=== PATIENT | male | born 1980 | race Caucasian/White ===

== ENCOUNTER 2019-11-17 19:08 | Inpatient (IN) ==
[2019-11-17 20:34] LABS: Basophils # 0.1 K/mcL (0.0-0.2); Basophils % 0.6 %; Eosinophils # 0.2 K/mcL (0.0-0.6); Hematocrit 42.7 % (37.5-50.1); Hemoglobin 14.3 g/dL (12.9-16.9); Immature Granulocytes % 0.5 % (0-4); Lymphocytes # 3.9 K/mcL (0.6-4.6); Lymphocytes % 48.1 %; Mean Corpuscular HGB Conc 33.5 g/dL (31.6-35.5); Mean Corpuscular Hemoglobin 28.9 pg (28.0-33.3); Mean Corpuscular Volume 86.4 fL (83.0-100.0); Mean Platelet Volume 12.1 fL (9.4-12.4); Monocytes # 0.9 K/mcL (0.0-1.3); Monocytes % 10.5 %; Neutrophils # 3.1 K/mcL (1.6-8.9); Platelet Count 215 K/mcL (140-400); Red Blood Count 4.94 M/mcL (4.19-5.50); Red Cell Distribution Width 13.1 % (11.5-14.5); Segmented Neutrophils % 38.3 %; White Blood Count 8.2 K/mcL (4.3-11.1)
[2019-11-17 20:50] LABS: Amphetamine Screen,Urine Negative ng/mL (Cutoff=1000); Barbiturate Screen,Urine Negative ng/mL (Cutoff=200); Benzodiazepines Screen,Urine Negative ng/mL (Cutoff=200); Cannabinoid Screen,Urine Positive ng/mL (Cutoff = 50); Cocaine Screen,Urine Negative ng/mL (Cutoff= 300); Opiate Screen,Urine Positive ng/mL (Cutoff=300); Phencyclidine Screen,Urine Negative ng/mL (Cutoff=25)
[2019-11-17 20:54] LABS: Acetaminophen < 10 mcg/mL (10-20); BUN/Creatinine Ratio 28 (6-26); Blood Urea Nitrogen 22 mg/dL (6-20); Calcium 9.4 mg/dL (8.6-10.3); Carbon Dioxide 24 mEq/L (23-29); Chloride 105 mEq/L (98-107); Chol/HDL Ratio 5.8 (0-4.9); Cholesterol 266 mg/dL (< 200); Ethanol 52 mg/dL (Less than 10); Glucose 93 mg/dL (70-105); HDL Cholesterol 46 mg/dL (40-59); LDL Cholesterol,Calculated 159 mg/dL (< 100); Osmolality,Calculated 291 (280-300); Salicylate < 2.5 mg/dL (15.0-30.0); Sodium 139 mEq/L (136-145); Triglycerides 304 mg/dL (< 150); eGFR For African Americans > 60 (> 60); eGFR For Non-African Americans > 60 (> 60)
[2019-11-17 21:42] LABS: Thyroid Stimulating Hormone 1.153 mcIU/mL (0.340-5.600)
[2019-11-17 22:23] LABS: Estimated Average Glucose 123 mg/dl; Hemoglobin A1C 5.9 %
[2019-11-18] MEDS ORDERED: *HR* LORazepam 2 MG/ML VIAL IM PRN (02:58)
[2019-11-18] MEDS ORDERED: *HR* LORazepam 1 MG TABLET PO PRN (02:58)
[2019-11-18] MEDS ORDERED: Mag Hydrox/Al Hydrox/Simeth 30 ML UDC PO PRN (02:58)
[2019-11-18] MEDS ORDERED: MOM Conc 10 ML UD.LIQ PO PRN (02:58)
[2019-11-18] MEDS ORDERED: haloperidoL 5 MG TABLET PO PRN (02:58)
[2019-11-18] MEDS ORDERED: Haloperidol Lactate 5 MG/ML VIAL IM PRN (02:58)
[2019-11-18] MEDS ORDERED: Gabapentin 400 MG CAPSULE PO SCH (09:00)
[2019-11-18] MEDS: Diclofenac Sodium (DR) 50 MG TABLET.DR PO SCH ×2 (09:32→20:24)
[2019-11-18] MEDS: *HR* HYDROcodone/Acet 5/325 mg TABLET PO SCH ×3 (11:19→20:24)
[2019-11-18] MEDS ORDERED: *HR* HYDROcodone/Acet 5/325 mg TABLET PO ONE (14:00)
[2019-11-18] MEDS: Gabapentin 400 MG CAPSULE PO SCH ×2 (14:34→20:24)
[2019-11-18] MEDS: hydrOXYzine pamoate 25 MG CAPSULE PO PRN (20:25)
[2019-11-18] MEDS: traZODone 50 MG TABLET PO PRN (21:33)
[2019-11-19] MEDS: Acetaminophen 325 MG TABLET PO PRN (03:24)
[2019-11-19] MEDS: *HR* HYDROcodone/Acet 5/325 mg TABLET PO SCH ×4 (08:08→20:44)
[2019-11-19] MEDS: Diclofenac Sodium (DR) 50 MG TABLET.DR PO SCH ×2 (08:09→20:45)
[2019-11-19] MEDS: Gabapentin 400 MG CAPSULE PO SCH ×3 (08:09→20:44)
[2019-11-19] MEDS: traZODone 50 MG TABLET PO PRN (20:45)
[2019-11-19] MEDS: hydrOXYzine pamoate 25 MG CAPSULE PO PRN (20:45)
[2019-11-20] MEDS: Acetaminophen 325 MG TABLET PO PRN (05:44)
[2019-11-20] MEDS: Diclofenac Sodium (DR) 50 MG TABLET.DR PO SCH (08:50)
[2019-11-20] MEDS: Gabapentin 400 MG CAPSULE PO SCH ×2 (08:51→15:00)
[2019-11-20] MEDS: *HR* HYDROcodone/Acet 5/325 mg TABLET PO SCH ×2 (08:51→13:10)
[2019-11-20 09:31] VITALS: BP 145/89
[2019-11-20] MEDS: hydrOXYzine pamoate 25 MG CAPSULE PO PRN (13:15)
== END 2019-11-20 15:50 | disposition home or self-care (01) | DRG 885 ==
LOC: EMEROOARM 19:08 → 1ANU 11-18 02:48
PROVIDERS: ADMIT Psychiatry & Neurology Psychiatry; ATTEND Psychiatry & Neurology Psychiatry

== ENCOUNTER 2020-02-04 13:31 | Inpatient (IN) ==
[2020-02-04] MEDS ORDERED: Naloxone 0.4 MG/ML INJ IVP PRN (15:21)
[2020-02-04] MEDS ORDERED: Ondansetron 4 MG/2 ML VIAL IVP PRN (15:21)
[2020-02-04] MEDS ORDERED: Nitroglycerin 0.4 MG TAB.SUBL SL PRN (15:27)
[2020-02-04] MEDS ORDERED: Perflutren Lipid Microsphere 1.3 ML in 0.9 % Sodium Chloride 8.7 ML IVP PRN ×2 (15:28→18:12)
[2020-02-04] MEDS ORDERED: Morphine Sulfate 2 MG/ML SYRINGE IVP PRN (16:05)
[2020-02-04 16:51] LABS: Bilirubin,Urine Negative (Negative); Blood,Urine Negative (Negative); Clarity,Urine Clear (Clear); Color,Urine Light-Yellow (Yellow); Glucose,Urine (UA) Normal (Normal); Ketones,Urine Negative (Negative); Leukocyte Esterase,Urine Negative (Negative); Nitrite,Urine Negative (Negative); Protein,Urine Negative (Neg-Trace); Specific Gravity,Urine > 1.030 (1.010-1.025); Urobilinogen,Urine Normal (Normal)
[2020-02-04 17:03] LABS: Amphetamine Screen,Urine Negative ng/mL (Cutoff=1000); Barbiturate Screen,Urine Negative ng/mL (Cutoff=200); Benzodiazepines Screen,Urine Negative ng/mL (Cutoff=200); Cannabinoid Screen,Urine Negative ng/mL (Cutoff = 50); Cocaine Screen,Urine Negative ng/mL (Cutoff= 300); Opiate Screen,Urine Positive ng/mL (Cutoff=300); Phencyclidine Screen,Urine Negative ng/mL (Cutoff=25)
[2020-02-04] MEDS ORDERED: Isovue-370 500 ML BOTTLE IVP ONE (17:51)
[2020-02-04] MEDS ORDERED: 0.9 % Sodium Chloride 1,000 ML IVC SCH (18:00)
[2020-02-04] MEDS ORDERED: *HR* Heparin 5,000 UNIT/ML VIAL IVP PRN ×2 (19:42)
[2020-02-04] MEDS ORDERED: *HR* Heparin 5,000 UNIT/ML VIAL IVP ONE (19:42)
[2020-02-04] MEDS ORDERED: Heparin 25,000UNIT/250ML 1/2NS 25,000 UNIT/250 ML IV.SOLN IVC SCH (19:45)
[2020-02-04 20:31] LABS: Hematocrit 45.3 % (37.5-50.1); Hemoglobin 14.8 g/dL (12.9-16.9); Mean Corpuscular HGB Conc 32.7 g/dL (31.6-35.5); Mean Corpuscular Hemoglobin 28.1 pg (28.0-33.3); Mean Corpuscular Volume 86.1 fL (83.0-100.0); Mean Platelet Volume 12.4 fL (9.4-12.4); Platelet Count 197 K/mcL (140-400); Red Blood Count 5.26 M/mcL (4.19-5.50); Red Cell Distribution Width 12.9 % (11.5-14.5); White Blood Count 14.1 K/mcL (4.3-11.1)
[2020-02-04] MEDS: Gabapentin 400 MG CAPSULE PO SCH (20:32)
[2020-02-04 20:40] LABS: Heparin anti-factor XA UFH < 0.04 IU/mL (0.30-0.70)
[2020-02-04] MEDS ORDERED: Heparin 1,000 UNITS/500 mL 500 ML ONE (21:27)
[2020-02-04] MEDS ORDERED: ISOVUE-370 200 ML INFUS..BTL ONE (21:27)
[2020-02-04] MEDS ORDERED: 0.9 % Sodium Chloride 2,000 ML ONE (21:27)
[2020-02-04] MEDS ORDERED: *HR* Heparin 10,000 UNIT/10 ML VIAL ONE (21:27)
[2020-02-04] MEDS ORDERED: Nitroglycerin 1,000 MCG/10 ML VIAL IV ONE (21:27)
[2020-02-04] MEDS ORDERED: *HR* Midazolam HCl 2 MG/2 ML VIAL ONE (21:58)
[2020-02-04] MEDS ORDERED: *HR* FentaNYL (PF) 100 MCG/2 ML VIAL ONE (21:59)
[2020-02-04] MEDS ORDERED: *HR* Heparin 5,000 UNIT/ML VIAL SQ SCH (22:00)
[2020-02-04] MEDS ORDERED: Tirofiban 12.5 MG/250ML 12.5 MG/250 ML BAG ONE (22:16)
[2020-02-04] MEDS ORDERED: niCARdipine 20 MG/200 ML MLS IVC ONE (22:30)
[2020-02-04] MEDS ORDERED: Furosemide 40 MG/4 ML VIAL ONE (22:41)
[2020-02-05 00:57] LABS: Basophils % 0.2 %; Eosinophils # 0.1 K/mcL (0.0-0.6); Eosinophils % 0.5 %; Hematocrit 42.5 % (37.5-50.1); Hemoglobin 13.7 g/dL (12.9-16.9); Immature Granulocytes % 0.7 % (0-4); Lymphocytes % 17.3 %; Mean Corpuscular HGB Conc 32.2 g/dL (31.6-35.5); Mean Corpuscular Hemoglobin 27.8 pg (28.0-33.3); Mean Corpuscular Volume 86.4 fL (83.0-100.0); Mean Platelet Volume 12.5 fL (9.4-12.4); Monocytes # 1.4 K/mcL (0.0-1.3); Monocytes % 8.1 %; Neutrophils # 12.5 K/mcL (1.6-8.9); Platelet Count 228 K/mcL (140-400); Red Blood Count 4.92 M/mcL (4.19-5.50); Red Cell Distribution Width 13.1 % (11.5-14.5); Segmented Neutrophils % 73.2 %; White Blood Count 17.1 K/mcL (4.3-11.1)
[2020-02-05 00:58] LABS: Prothrombin Time 11.5 Seconds (9.4-12.1)
[2020-02-05 01:14] LABS: BUN/Creatinine Ratio 13 (6-26); Blood Urea Nitrogen 15 mg/dL (6-20); Calcium 8.9 mg/dL (8.6-10.3); Carbon Dioxide 26 mEq/L (23-29); Chloride 101 mEq/L (98-107); Glucose 139 mg/dL (70-105); Osmolality,Calculated 287 (280-300); Sodium 137 mEq/L (136-145); eGFR For African Americans > 60 (> 60); eGFR For Non-African Americans > 60 (> 60)
[2020-02-05] MEDS ORDERED: Acetaminophen IV 1,000 MG/100 ML INFUS..BTL IVPB ONE (06:38)
[2020-02-05] MEDS: lisinopriL 5 MG TABLET PO SCH (09:03)
[2020-02-05] MEDS: carvediloL 6.25 MG TABLET PO SCH ×2 (09:03→16:14)
[2020-02-05] MEDS: Aspirin Enteric Coated 81 MG Tablet PO SCH (09:07)
[2020-02-05] MEDS: Gabapentin 400 MG CAPSULE PO SCH ×3 (09:07→20:57)
[2020-02-05] MEDS: 0.9 % Sodium Chloride 1,000 ML IVC SCH (09:08)
[2020-02-05] MEDS: Acetaminophen 325 MG TABLET PO PRN (13:08)
[2020-02-05] MEDS: *HR* HYDROcodone/Acet 5/325 mg TABLET PO PRN (20:56)
[2020-02-06 02:01] LABS: BUN/Creatinine Ratio 17 (6-26); Blood Urea Nitrogen 16 mg/dL (6-20); Calcium 8.6 mg/dL (8.6-10.3); Carbon Dioxide 25 mEq/L (23-29); Chloride 108 mEq/L (98-107); Glucose 116 mg/dL (70-105); Osmolality,Calculated 290 (280-300); Potassium 4.5 mEq/L (3.5-5.1); Sodium 139 mEq/L (136-145); eGFR For African Americans > 60 (> 60); eGFR For Non-African Americans > 60 (> 60)
[2020-02-06 02:51] LABS: Eosinophils % 0.7 %; Hemoglobin 12.5 g/dL (12.9-16.9); Immature Granulocytes % 0.7 % (0-4); Mean Corpuscular Volume 89.5 fL (83.0-100.0)
[2020-02-06 02:53] LABS: Basophils # 0.1 K/mcL (0.0-0.2); Basophils % 0.4 %; Eosinophils # 0.1 K/mcL (0.0-0.6); Hematocrit 39.4 % (37.5-50.1); Immature Platelets 13.1 % (1.1-6.1); Lymphocytes % 34.4 %; Mean Corpuscular HGB Conc 31.7 g/dL (31.6-35.5); Mean Corpuscular Hemoglobin 28.4 pg (28.0-33.3); Mean Platelet Volume 12.8 fL (9.4-12.4); Monocytes # 1.5 K/mcL (0.0-1.3); Monocytes % 12.9 %; Platelet Count 155 K/mcL (140-400); Red Cell Distribution Width 13.3 % (11.5-14.5); Segmented Neutrophils % 50.9 %; White Blood Count 11.7 K/mcL (4.3-11.1)
[2020-02-06] MEDS: *HR* HYDROcodone/Acet 5/325 mg TABLET PO PRN (02:57)
[2020-02-06] MEDS: 0.9 % Sodium Chloride 1,000 ML IVC SCH (02:58)
[2020-02-06 04:28] LABS: Platelet Estimate Normal (Normal)
[2020-02-06] MEDS: Gabapentin 400 MG CAPSULE PO SCH (07:50)
[2020-02-06] MEDS: Aspirin Enteric Coated 81 MG Tablet PO SCH (07:51)
[2020-02-06] MEDS: lisinopriL 5 MG TABLET PO SCH (07:51)
[2020-02-06] MEDS: carvediloL 6.25 MG TABLET PO SCH (07:51)
[2020-02-06] MEDS: Acetaminophen 325 MG TABLET PO PRN (09:36)
[2020-02-06 11:45] VITALS: BP 127/75
== END 2020-02-06 14:12 | disposition home or self-care (01) | DRG 247 ==
LOC: 3ANU → SUATTDRO 14:43 → 2ANU 23:04
PROVIDERS: ADMIT Internal Medicine; ATTEND Internal Medicine

== ENCOUNTER 2020-09-05 16:23 | Observation (INO) ==
[2020-09-05] MEDS ORDERED: Nitroglycerin 0.4 MG TAB.SUBL SL PRN (20:43)
[2020-09-05] MEDS ORDERED: Morphine Sulfate 2 MG/ML SYRINGE IVP PRN (20:43)
[2020-09-05] MEDS ORDERED: Perflutren Lipid Microsphere 1.3 ML in 0.9 % Sodium Chloride 8.7 ML IVP PRN (20:44)
[2020-09-05] MEDS ORDERED: Naloxone 0.4 MG/ML INJ IVP PRN (20:51)
[2020-09-05] MEDS ORDERED: Acetaminophen 325 MG TABLET PO PRN (20:51)
[2020-09-05] MEDS ORDERED: Ondansetron 4 MG/2 ML VIAL IVP PRN (20:51)
[2020-09-05] MEDS ORDERED: D5% in Water 1,000 ML IVC PRN (20:52)
[2020-09-05] MEDS ORDERED: Dextrose Gel 15 GM/37.5 ML TUBE PO PRN ×2 (20:52)
[2020-09-05] MEDS ORDERED: *HR* Dextrose 50 % in Water (Vial) 50 ML VIAL IVP PRN (20:52)
[2020-09-05] MEDS ORDERED: Insulin LISPRO 300 UNITS/3 ML VIAL SUBQ SCH (21:00)
[2020-09-05] MEDS: Gabapentin 400 MG CAPSULE PO SCH (21:48)
[2020-09-05] MEDS: *HR* Heparin 5,000 UNIT/ML VIAL SQ SCH (22:04)
[2020-09-05 23:00] LABS: Bilirubin,Urine Negative (Negative); Blood,Urine Negative (Negative); Clarity,Urine Clear (Clear); Color,Urine Yellow (Yellow); Glucose,Urine (UA) Normal (Normal); Ketones,Urine Negative (Negative); Leukocyte Esterase,Urine Negative (Negative); Mucus,Urine Moderate per lpf (None-Few); Nitrite,Urine Negative (Negative); PH,Urine 5.5 pH Units (5.0-8.0); Protein,Urine 30 mg/dL (Neg-Trace); RBC,Urine 0-3 per hpf (0-3); Specific Gravity,Urine > 1.030 (1.010-1.025); Squamous Epithelial Cell,Urine Few per hpf (None-Few); Urobilinogen,Urine Normal (Normal); WBC,Urine 0-3 per hpf (0-3)
[2020-09-06 04:15] LABS: Hemoglobin 14.5 g/dL (12.9-16.9); Mean Corpuscular Hemoglobin 28.5 pg (28.0-33.3); Mean Corpuscular Volume 86.4 fL (83.0-100.0); Mean Platelet Volume 12.7 fL (9.4-12.4); Platelet Count 194 K/mcL (140-400); Red Blood Count 5.09 M/mcL (4.19-5.50); Red Cell Distribution Width 13.6 % (11.5-14.5); White Blood Count 10.1 K/mcL (4.3-11.1)
[2020-09-06 04:26] LABS: BUN/Creatinine Ratio 22 (6-26); Blood Urea Nitrogen 22 mg/dL (6-20); Calcium 9.5 mg/dL (8.6-10.3); Carbon Dioxide 25 mEq/L (23-29); Chloride 107 mEq/L (98-107); Chol/HDL Ratio 6.5 (0-4.9); Cholesterol 207 mg/dL (< 200); Glucose 107 mg/dL (70-105); HDL Cholesterol 32 mg/dL (40-59); LDL Cholesterol,Calculated 100 mg/dL (< 100); Magnesium 2.2 mg/dL (1.6-2.6); Osmolality,Calculated 292 (280-300); Potassium 3.8 mEq/L (3.5-5.1); Sodium 139 mEq/L (136-145); Triglycerides 375 mg/dL (< 150); eGFR For African Americans > 60 (> 60); eGFR For Non-African Americans > 60 (> 60)
[2020-09-06 04:29] LABS: Albumin 4.4 g/dL (3.5-5.7); Albumin/Globulin Ratio 1.9 (1.1-2.2); Bilirubin,Direct 0.1 mg/dL (0.0-0.2); Bilirubin,Indirect 0.4 mg/dL (0.0-1.0); Bilirubin,Total 0.5 mg/dL (0.3-1.0); Globulin 2.3 g/dL (2.4-3.5); Total Protein 6.7 g/dL (6.4-8.9)
[2020-09-06 04:41] LABS: Thyroid Stimulating Hormone 0.561 mcIU/mL (0.340-5.600)
[2020-09-06 04:52] LABS: Estimated Average Glucose 131 mg/dl; Hemoglobin A1C 6.2 %
[2020-09-06] MEDS ORDERED: *HR* HYDROcodone/Acet 5/325 mg TABLET PO ONE (05:05)
[2020-09-06] MEDS: *HR* Heparin 5,000 UNIT/ML VIAL SQ SCH (05:48)
[2020-09-06] MEDS ORDERED: Regadenoson 0.4 MG/5 ML SYRINGE IVP ONE (06:23)
[2020-09-06] MEDS: Insulin LISPRO 300 UNITS/3 ML VIAL SUBQ SCH ×2 (08:22→12:42)
[2020-09-06] MEDS ORDERED: lisinopriL 5 MG TABLET PO SCH (09:00)
[2020-09-06] MEDS ORDERED: Furosemide 40 MG TABLET PO SCH (09:00)
[2020-09-06] MEDS ORDERED: Aspirin Enteric Coated 81 MG Tablet PO SCH (09:00)
[2020-09-06] MEDS: Gabapentin 400 MG CAPSULE PO SCH (10:04)
[2020-09-06 12:26] VITALS: BP 124/73
== END 2020-09-06 15:15 | disposition home or self-care (01) ==
LOC: 3NENU → SUATTDRO 18:26
PROVIDERS: ADMIT Student in an Organized Health Care Education/Training Program; ATTEND Internal Medicine